=== PATIENT | female | born 1990 | race Caucasian/White ===

== ENCOUNTER 2018-02-01 14:15 | Emergency (ER) | payer SELFPAY ==
[~2018-02-01] VITALS: Ht 149.9 cm; Wt 68.0 kg
[2018-02-01 14:50] VITALS: BP 110/76
== END 2018-02-01 16:08 | disposition home or self-care (01) ==
LOC: ER 14:24
DX: L03.011 Cellulitis of right finger (principal); Z90.89 Acquired absence of other organs
CPT/HCPCS: 10060; 73140